=== PATIENT | female | born 1990 | race Asian ===

== ENCOUNTER 2018-03-23 07:32 | Emergency (ER) | payer OTHER ==
[~2018-03-23] VITALS: Ht 154.9 cm; Wt 63.5 kg
[2018-03-23 07:37] VITALS: Ht 154.9 cm; Wt 63.5 kg
[2018-03-23 10:00] VITALS: BP 120/78
== END 2018-03-23 10:00 | disposition home or self-care (01) ==
LOC: ED 07:32
DX: N73.9 Female pelvic inflammatory disease, unspecified (principal); N76.0 Acute vaginitis; N39.0 Urinary tract infection, site not specified; Z88.0 Allergy status to penicillin; Z88.2 Allergy status to sulfonamides
CPT/HCPCS: 87491; 87591; J1885; Q0162